=== PATIENT | female | born 1945 | race Caucasian/White ===

== ENCOUNTER 2020-08-15 20:18 | Emergency (ER) | payer MEDICARE ==
[~2020-08-15] VITALS: Ht 160 cm; Wt 75.9 kg
[2020-08-15 20:39] LABS: BASOPHILS # (AUTO) 0.2 X10'3 (0-0.2); BASOPHILS % (AUTO) 0.8 % (0-1); EOSINOPHILS % (AUTO) 0 % (0-6); HEMATOCRIT 31.9 % (35.0-45.0); HEMOGLOBIN 10.4 g/dl (12.0-16.0); LYMPHOCYTES # (AUTO) 2.7 X10'3 (1.1-4.8); LYMPHOCYTES % (AUTO) 12.9 % (21-51); MEAN CORPUSCULAR HEMOGLOBIN 31.8 PG (27.0-31.0); MEAN CORPUSCULAR HGB CONC 32.4 g/dL (33.0-36.5); MEAN CORPUSCULAR VOLUME 98.1 FL (78-98); MEAN PLATELET VOLUME 9.3 FL (7.4-10.4); MONOCYTES # (AUTO) 1.4 X10'3 (0-0.9); MONOCYTES % (AUTO) 6.7 % (2-12); NEUTROPHILS # (AUTO) 16.7 X10'3 (1.8-7.7); NEUTROPHILS % (AUTO) 79.6 % (42-75); PLATELET COUNT 220 X10'3 (140-440); RED BLOOD COUNT 3.25 X10'6 (4.20-5.60); RED CELL DISTRIBUTION WIDTH 14.3 % (11.5-14.5); WHITE BLOOD COUNT 21.1 X10'3 (4.5-11.0)
[2020-08-15 20:52] LABS: ALANINE AMINOTRANSFERASE 16 U/L (12-78); ALBUMIN 2.8 G/DL (3.4-5.0); ALBUMIN/GLOBULIN RATIO 0.9 (1.1-1.5); ALKALINE PHOSPHATASE 67 IU/L (46-116); ANION GAP 11 (8-16); ASPARTATE AMINO TRANSFERASE 17 U/L (10-37); BILIRUBIN,TOTAL 0.5 MG/DL (0.1-1.0); BLOOD UREA NITROGEN 49 MG/DL (7-18); CALCIUM 8.2 MG/DL (8.5-10.1); CHLORIDE 107 MMOL/L (99-107); CREATININE 1.14 MG/DL (0.40-0.90); GLUCOSE 155 MG/DL (70-104); LIPASE < 50 U/L (73-393); POTASSIUM 4.7 MMOL/L (3.5-5.1); SODIUM 142 MMOL/L (135-145); TOTAL CARBON DIOXIDE 24.5 MMOL/L (24-32); eGFR 47 ML/MIN
--- NOTE | 2020-08-15 21:30 | NUR ---
NIHARIKA IS DAUGHTER CALL FOR UPDATE [phone]
[2020-08-15 21:47] LABS: CLARITY,URINE CLEAR (Clear); COLOR,URINE STRAW (Yellow); GLUCOSE, URINE NEGATIVE (Neg); KETONES,URINE 15 mg/dl (Neg); LEUKOCYTE ESTERASE ,URINE NEGATIVE (Neg); NITRITES, URINE NEGATIVE (Neg); OCCULT BLOOD,URINE MODERATE (Neg); PROTEIN,URINE NEGATIVE (Neg); UROBILINOGEN,URINE 0.2 E.U/dL (0.2-1.0)
[2020-08-15 21:48] LABS: URINE HCG NEGATIVE (NEG)
[2020-08-15 21:51] LABS: UA COLLECTION TYPE CLN CATCH MIDSTREAM
[2020-08-15 21:52] LABS: BACTERIA,URINE NONE SEEN /HPF (Neg); MUCUS STRANDS MODERATE /LPF (Neg); RBC,URINE 0-2 /HPF (0-2); SQUAMOUS EPITHELIAL CELL,UR FEW /LPF (FEW); WBC,URINE 0-4 /HPF (0-4)
[2020-08-15] MEDS ORDERED: pantoprazole 40 MG vial IV ONE (22:00)
[2020-08-15] MEDS ORDERED: CefTRIAXone/D5W-Rocephin 1gm 50 ML IV ONE (22:05)
[2020-08-15 22:08] LABS: MAGNESIUM 2.1 MG/DL (1.5-2.4)
[2020-08-15 22:09] LABS: PARTIAL THROMBOPLASTIN TIME 23 SECONDS (22-32)
[2020-08-15] MEDS ORDERED: NO HOME MEDS (23:25)
[2020-08-15] MEDS ORDERED: normal saline 1000ml 1,000 ML IV ONE ×2 (23:25)
[2020-08-16] MEDS ORDERED: tranexamic acid inj. 2,000 MG in normal saline 100ml IV soln 80 ML IPL ONE (00:25)
[2020-08-16] MEDS ORDERED: ondansetron/PF 4mg/2ml inj IV ONE (00:25)
[2020-08-16] MEDS ORDERED: tranexamic acid 100mg/ml inj. TP ONE (00:25)
[2020-08-16 00:54] LABS: BASOPHILS % (AUTO) 0.2 % (0-1); EOSINOPHILS % (AUTO) 0 % (0-6); HEMOGLOBIN 7.7 g/dl (12.0-16.0); LYMPHOCYTES # (AUTO) 2.9 X10'3 (1.1-4.8); LYMPHOCYTES % (AUTO) 16.5 % (21-51); MEAN CORPUSCULAR HEMOGLOBIN 31.6 PG (27.0-31.0); MEAN CORPUSCULAR VOLUME 98.9 FL (78-98); MEAN PLATELET VOLUME 9.2 FL (7.4-10.4); MONOCYTES # (AUTO) 1.4 X10'3 (0-0.9); MONOCYTES % (AUTO) 7.9 % (2-12); NEUTROPHILS % (AUTO) 75.4 % (42-75); PLATELET COUNT 185 X10'3 (140-440); RED BLOOD COUNT 2.43 X10'6 (4.20-5.60); RED CELL DISTRIBUTION WIDTH 14.3 % (11.5-14.5); WHITE BLOOD COUNT 17.3 X10'3 (4.5-11.0)
--- NOTE | 2020-08-16 01:27 | NUR ---
PT BP 96/48. MISAEL MIRAMONTES NOTIFIED - ORDERED 2 UNITS PRBC TRANSFUSION
[2020-08-16 02:01] VITALS: BP 117/65
[2020-08-16 02:19] VITALS: BP 105/49
[2020-08-16 03:20] VITALS: BP 117/61
[2020-08-16 03:43] VITALS: BP 116/60
[2020-08-16 05:24] LABS: HEMATOCRIT 30.4 % (35.0-45.0); HEMOGLOBIN 10.4 g/dl (12.0-16.0); MEAN CORPUSCULAR HEMOGLOBIN 31.9 PG (27.0-31.0); MEAN CORPUSCULAR HGB CONC 34.3 g/dL (33.0-36.5); MEAN CORPUSCULAR VOLUME 92.9 FL (78-98); MEAN PLATELET VOLUME 8.9 FL (7.4-10.4); PLATELET COUNT 131 X10'3 (140-440); RED BLOOD COUNT 3.27 X10'6 (4.20-5.60); RED CELL DISTRIBUTION WIDTH 16.4 % (11.5-14.5); WHITE BLOOD COUNT 16.9 X10'3 (4.5-11.0)
[2020-08-16 06:04] LABS: ANISOCYTOSIS 1+; PLATELET ESTIMATE DECREASED; TOTAL CELLS COUNTED 100
[2020-08-16 06:05] LABS: BURR CELLS 1+; HYPOCHROMASIA 1+; LARGE PLATELETS FEW; POLYCHROMASIA 1+
[2020-08-16] MEDS ORDERED: pantoprazole 40 MG vial IV SCH (08:00)
[2020-08-16] MEDS ORDERED: oxymetazoline 15 ML nasal spray NS ONE (11:00)
[2020-08-16 12:00] VITALS: BP 124/57
[2020-08-16] MEDS ORDERED: CefTRIAXone/D5W-Rocephin 1gm 50 ML IV SCH (22:00)
== END 2020-08-16 12:19 | disposition home or self-care (01) ==
LOC: ER 20:19
DX: R04.0 Epistaxis (principal); D62 Acute posthemorrhagic anemia; R57.8 Other shock; K92.0 Hematemesis; Z88.2 Allergy status to sulfonamides
CPT/HCPCS: 36415; 36430; 71046; 80053; 81001; 81025; 83605; 83690; 83735; 84145; 85007; 85025; 85610; 85730; 86885; 86900; 86901; 86920; 87040; 93005; 96365; 96375; 99291; C9113; J0696; J2405; J7030; P9016; 99292